=== PATIENT | male | born 1970 | race Caucasian/White ===

== ENCOUNTER 2018-12-03 10:16 | Emergency (ER) | payer OTHER ==
[~2018-12-03] VITALS: Ht 177.8 cm; Wt 97.1 kg
[2018-12-03 10:19] VITALS: BP 181/110
[2018-12-03] MEDS ORDERED: PROPARACAINE OPHTH 0.5%, 15ML ONE (10:20)
[2018-12-03] MEDS ORDERED: FLUORESCEIN OPHTHALMIC 1 MG STRIP ONE (10:20)
== END 2018-12-03 10:54 | disposition home or self-care (01) ==
LOC: ED 10:40
DX: B30.1 Conjunctivitis due to adenovirus (principal)
CPT/HCPCS: 99282